=== PATIENT | male | born 1975 ===

== ENCOUNTER 2017-07-05 22:29 | Emergency (ER) | payer SELFPAY ==
--- NOTE | 2017-07-05 23:50 | ED PDOC ---
HPI: General Adult Time Seen by Provider: 07/05/17 23:07 Chief Complaint (Nursing): Dizziness/Lightheaded Chief Complaint (Provider): throat pain History Per: Patient History/Exam Limitations: no limitations Onset/Duration Of Symptoms: Days (months), Waxing/Waning Current Symptoms Are (Timing): Still Present Additional History Per: Patient Additional Complaint(s): 41 y/o male presents to ED with complaints of throat pain/swelling x 8 months. Patient states he always feels that his glands and throat is "inflamed". Patient states he saw a doctor 2 months ago for same and was given antibiotics for throat infection but it did not help. Patient states sometimes after eating he gets a sensation of difficulty getting air in to his throat; states this happened today after eating lunch, and when he suddenly stood up he felt dizzy. Denies fever, headache, dizziness, extremity numbness/weakness, vision changes, difficulty speaking/swallowing, chest pain, shortness of breath, palpitations, abdominal pain, leg pain/swelling. Past Medical History Reviewed: Historical Data, Nursing Documentation, Vital Signs Vital Signs: Last Vital Signs Temp 97.8 F 07/05/17 22:35 Pulse 93 H 07/05/17 22:35 Resp 18 07/05/17 22:35 BP 147/98 H 07/05/17 22:35 Pulse Ox 98 07/06/17 02:22 - Medical History PMH: No Chronic Diseases - Surgical History Surgical History: No Surg Hx - Family History Family History: States: No Known Family Hx - Social History Current smoker - smoking cessation education provided: No - Allergies Allergies/Adverse Reactions: Allergies Allergy/AdvReac Type Severity Reaction Status Date / Time No Known Allergies Allergy Verified 07/05/17 22:35 Review of Systems ROS Statement: Except As Marked, All Systems Reviewed And Found Negative ENT: Positive for: Throat Pain Physical Exam - Reviewed Nursing Documentation Reviewed: Yes Vital Signs Reviewed: Yes - Physical Exam Appears: Positive for: Well, Non-toxic, No Acute Distress Head Exam: Positive for: ATRAUMATIC, NORMAL INSPECTION, NORMOCEPHALIC Skin: Positive for: Normal Color Eye Exam: Positive for: Normal appearance ENT: Positive for: Normal ENT Inspection Cardiovascular/Chest: Positive for: Regular Rate, Rhythm Respiratory: Positive for: Normal Breath Sounds Gastrointestinal/Abdominal: Positive for: Normal Exam Back: Positive for: Normal Inspection Extremity: Positive for: Normal ROM Neurologic/Psych: Positive for: Alert, Oriented - Laboratory Results Result Diagrams: 07/06/17 00:05 07/06/17 00:05 - ECG ECG: Positive for: Viewed By Me (reviewed by ED attendign) ECG Rhythm: Positive for: Sinus Rhythm O2 Sat by Pulse Oximetry: 98 Pulse Ox Interpretation: Normal - Progress ED Course And Treament: labs, ekg, EXAM: CT Neck With Intravenous Contrast EXAM DATE/TIME: 07/06/2017 2:08 AM CLINICAL HISTORY: 41 years old, male; Pain; Neck pain and throat pain; Patient HX: See phys doc; Additional info: Throat/neck pain x months TECHNIQUE: Axial computed tomography images of the neck with intravenous contrast. All CT scans at this facility use one or more dose reduction techniques, viz.: automated exposure control; ma/kV adjustment per patient size (including targeted exams where dose is matched to indication; i.e. head); or iterative reconstruction technique. Coronal and sagittal reformatted images were created and reviewed. CONTRAST: 95 mL of OMNI 300 administered intravenously. COMPARISON: No relevant prior studies available. FINDINGS: NASOPHARYNX: No acute abnormality of the adenoidal/nasopharyngeal tonsils identified. OROPHARYNX: Best seen on images 42-43 of series 601, there is soft tissue prominence in the region of the left tongue base, suspicious for enlarged left lingual tonsils. This causes effacement the left vallecula. No evidence of peritonsillar abscess. No acute abnormality of the palatine tonsils identified. HYPOPHARYNX: See above. LARYNX: No acute abnormality of the vocal cords identified. No acute abnormality of the epiglottis identified. TRACHEA: Visualized portions of the trachea appear patent. RETROPHARYNGEAL SPACE: No evidence of prevertebral/retropharyngeal fluid or fluid collection. SUBMANDIBULAR/PAROTID GLANDS: No acute abnormality of the parotid or submandibular glands identified. THYROID: No acute abnormality of the thyroid gland identified. BONES/JOINTS: No acute fractures or other acute bony abnormality noted. SOFT TISSUES: No findings to suggest significant cellulitis of the soft tissues. VASCULATURE: No acute abnormality of the major neck vessels seen. LYMPH NODES: Multiple small lymph nodes seen in the neck bilaterally with the, none appearing pathologically enlarged. This is a nonspecific finding. No evidence of diffuse pathologic lymphadenopathy. ESOPHAGUS: No acute abnormality of the upper esophagus identified. IMPRESSION: - Enlarged left lingual tonsils. In an acute setting, this could be secondary to tonsillitis. Recommend clinical correlation. No evidence of a peritonsillar abscess. - See above for remaining findings. Patient educated on findings, given IV decadron dose. Advised NSAIDs. Follow up ENT. Return precautions given Disposition - Clinical Impression Clinical Impression: Tonsillitis - Patient ED Disposition Is Patient to be Admitted: No Counseled Patient/Family Regarding: Studies Performed, Diagnosis, Need For Followup - Disposition Referrals: Benton Baca MD [Staff Provider] - [facility] [Outside] Disposition: Routine/Home Disposition Time: 03:45 Condition: GOOD Instructions: Tonsillitis (ED) Print Language: YORUBA
[2017-07-06 00:38] LABS: BASO % 0.6 % (0.0-2.0); EOS # 0.1 K/uL (0.0-0.7); EOS % 1.5 % (0.0-4.0); HEMOGLOBIN 15.3 g/dL (12.0-18.0); LYMPH # 1.8 K/uL (1.0-4.3); LYMPH % 28.6 % (20.0-40.0); MEAN CELL VOLUME 80.7 fl (80.0-94.0); MEAN CORPUSCULAR HGB CONC 33.5 g/dL (33.0-37.0); MONO # 0.4 K/uL (0.0-0.8); MONO % 6.7 % (0.0-10.0); NEUT # 3.9 K/uL (1.8-7.0); NEUT % 62.6 % (50.0-75.0); NRBC % 0.4 % (0.0-0.0); RBC 5.67 Mil/uL (4.40-5.90); RED CELL DISTRIBUTION WIDTH 14.3 % (11.5-14.5); WHITE BLOOD COUNT 6.3 K/uL (4.8-10.8)
[2017-07-06 00:46] LABS: ALB/GLOB RATIO 1.2 (1.0-2.1); ALBUMIN 4.2 g/dL (3.5-5.0); CALCIUM 8.9 mg/dL (8.4-10.2); GFR AFRICAN-AMERICAN > 60; GFR NON-AFRICAN AMERICAN > 60
[2017-07-06 01:18] LABS: ALT/SGPT 73 U/L (21-72); AST/SGOT 43 U/L (17-59); BLOOD UREA NITROGEN 18 mg/dl (9-20)
[2017-07-06] MEDS ORDERED: Iohexol 300 100 ML IJ ONE (02:16)
[2017-07-06] MEDS ORDERED: Sodium Chloride 0.9% 50 ML IV ONE (02:16)
--- NOTE | 2017-07-06 03:24 | CT ---
EXAM: CT Neck With Intravenous Contrast EXAM DATE/TIME: 07/06/2017 2:08 AM CLINICAL HISTORY: 41 years old, male; Pain; Neck pain and throat pain; Patient HX: See phys doc; Additional info: Throat/neck pain x months TECHNIQUE: Axial computed tomography images of the neck with intravenous contrast. All CT scans at this facility use one or more dose reduction techniques, viz.: automated exposure control; ma/kV adjustment per patient size (including targeted exams where dose is matched to indication; i.e. head); or iterative reconstruction technique. Coronal and sagittal reformatted images were created and reviewed. CONTRAST: 95 mL of OMNI 300 administered intravenously. COMPARISON: No relevant prior studies available. FINDINGS: NASOPHARYNX: No acute abnormality of the adenoidal/nasopharyngeal tonsils identified. OROPHARYNX: Best seen on images 42-43 of series 601, there is soft tissue prominence in the region of the left tongue base, suspicious for enlarged left lingual tonsils. This causes effacement the left vallecula. No evidence of peritonsillar abscess. No acute abnormality of the palatine tonsils identified. HYPOPHARYNX: See above. LARYNX: No acute abnormality of the vocal cords identified. No acute abnormality of the epiglottis identified. TRACHEA: Visualized portions of the trachea appear patent. RETROPHARYNGEAL SPACE: No evidence of prevertebral/retropharyngeal fluid or fluid collection. SUBMANDIBULAR/PAROTID GLANDS: No acute abnormality of the parotid or submandibular glands identified. THYROID: No acute abnormality of the thyroid gland identified. BONES/JOINTS: No acute fractures or other acute bony abnormality noted. SOFT TISSUES: No findings to suggest significant cellulitis of the soft tissues. VASCULATURE: No acute abnormality of the major neck vessels seen. LYMPH NODES: Multiple small lymph nodes seen in the neck bilaterally with the, none appearing pathologically enlarged. This is a nonspecific finding. No evidence of diffuse pathologic lymphadenopathy. ESOPHAGUS: No acute abnormality of the upper esophagus identified. IMPRESSION: - Enlarged left lingual tonsils. In an acute setting, this could be secondary to tonsillitis. Recommend clinical correlation. No evidence of a peritonsillar abscess. - See above for remaining findings.
[2017-07-06 04:04] VITALS: BP 129/64; PULSE 73; RESP 20; TEMP 98.4; O2SAT 99
--- NOTE | 2017-07-06 11:05 | CARD ---
APPROVED REPORT EKG Measurement Heart [id number] <Conclusion> Normal sinus rhythm Moderate voltage criteria for LVH, may be normal variant Borderline ECG
== END 2017-07-06 04:22 | disposition home or self-care (01) ==
LOC: H.ER 22:29
DX: J03.90 Acute tonsillitis, unspecified (principal); R42 Dizziness and giddiness
CPT/HCPCS: 70491; 80053; 84443; 85025; 86308; 87070; 87430; 93005; 99283; J1100; Q9967